=== PATIENT | male | born 1995 | race Caucasian/White ===

== ENCOUNTER 2016-03-22 17:31 | Emergency (ER) | payer OTHER ==
--- NOTE | 2016-03-22 18:25 | EDPHY ---
H & P Stated Complaint: fell snowboarding today, right shoulder injury HPI/ROS: CHIEF COMPLAINT: Right shoulder HISTORY OF PRESENT ILLNESS: snowboarding today around 1:30 p.m. when he fell, landing on the right shoulder. He was wearing a helmet and did not strike his head or lose consciousness. He is complaining of pain in the right shoulder and right trapezius muscles moderate to severe. Worse with any palpation or movement. Unable to fully move the shoulder secondary to pain. No position of comfort. There is no chest pain or shortness of breath. No abdominal pain. No injury to the left arm or either leg. No other associated complaints or modifying factors. REVIEW OF SYSTEMS: Ten systems reviewed and are negative unless otherwise noted in the HPI EXAMINATION General Appearance: Alert, no distress Head: normocephalic, atraumatic Eyes: Pupils equal and round, no conjunctival pallor or injection ENT, Mouth: Mucous membranes moist Neck: Normal inspection Respiratory: No dyspnea or retractions. No distress Cardiovascular: Pulses normal throughout. 2/2 radial pulses symmetrically.Brisk cap refill In all fingers. Good signs of perfusion Gastrointestinal: No distention or tenderness Back: non-tender, no bony abnormalities Neurological: A&O, sensory symmetric, strength symmetric Skin: Warm and dry, no rash Extremities: moderate to severe tenderness to palpation of the right AC joint and shoulder joint. Unable to fully test range of motion secondary to pain. The ipsilateral elbow and wrist are intact. Neurovascular intact distal to the right shoulder pain with brisk cap refill. Psychiatric: Mood and affect normal DIFFERENTIAL DIAGNOSES: Including but not limited to Shoulder sprain, fracture, AC separation, contusion, rotator cuff injury. MDM: fall snowboarding that resulted in a right shoulder injury. X-ray reveals a grade 2 sprain of the right AC joint. No bony abnormality. Exam reveals neurovascularly intact distally with point tenderness over the AC joint. No tenderness of the humerus, elbow or wrist on the same extremity. He has been placed in a splint will be discharged home with pain medication and instructions to follow up with Orthopedics for definitive care. Patient is comfortable with this and discharged home in stable condition. ED Precautions: Worsening pain. Erythema, edema, cyanosis, pallor, paresthesia or anesthesia. SUPERVISION: This patient was independently evaluated without the aide of supervising physician. 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 - Social History Smoking Status: Current every day smoker Constitutional: Initial Vital Signs Temperature (C) 98.6 F 03/22/16 17:34 Heart Rate 93 03/22/16 17:34 Respiratory Rate 18 03/22/16 17:34 Blood Pressure 149/82 H 03/22/16 17:34 O2 Sat (%) 98 03/22/16 17:34 O2 Delivery Mode Room Air Allergies/Adverse Reactions: No Known Allergies Allergy (Unverified 03/22/16 17:34) Home Medications: Medication Instructions Recorded Cyclobenzaprine [Flexeril 10 MG 10 mg PO TID PRN #15 tab 03/22/16 (*)] oxyCODONE HCL/ACETAMINOPHEN 1 each PO Q4-6PRN PRN #20 tablet 03/22/16 [Percocet 5-325 mg Tablet] Medical Decision Making - Data Points Medications Given: Discontinued Medications Oxycodone/Acetaminophen (Percocet 5/325mg Prepack#4) 1 btl TAKEHOME EDNOW ONE Stop: 03/22/16 18:58 Last Admin: 03/22/16 18:59 Dose: 1 btl Departure - Departure Disposition: Home, Routine, Self-Care Clinical Impression: Trauma Shoulder sprain Qualifiers: Encounter type: initial encounter Shoulder sprain type: unspecified sprain Laterality: right Qualifier Code: (S43.401A) Unspecified sprain of right shoulder joint, initial encounter Condition: Good Instructions: Shoulder Sprain (ED) Additional Instructions: Follow up with Orthopedics for definitive care. Return to the ER for numbness, cyanosis, pallor, paralysis Referrals: OUT OF STATE,. [Primary Care Provider] - As per Instructions Chris Mora MD [Medical Doctor] - As per Instructions Stand Alone Forms: Work Limited Duty Prescriptions: Cyclobenzaprine [Flexeril 10 MG (*)] 10 mg PO TID PRN #15 tab PRN Reason: Spasms oxyCODONE HCL/ACETAMINOPHEN [Percocet 5-325 mg Tablet] 1 each PO Q4-6PRN PRN # 20 tablet PRN Reason: Pain, Moderate
--- NOTE | 2016-03-22 18:36 | DX ---
Right Shoulder, Three Views March 22, 2016 at 5:43 p.m. Clinical History: 21-year-old male involved in a snowboarding accident, complaining of shoulder pain. Comparison Study: None. Findings: There is cephalad subluxation of the distal clavicle relative to the acromion, consistent w ith a type II separation sprain injury. There is no fracture observed. The glenohumeral joint is deisi omically aligned. The coracoclavicular and acromiohumeral distances are appropriate. The scapula and visualized right rib cage are intact. Impression: Type II separation sprain injury of the right acromioclavicular joint.
[2016-03-22] MEDS ORDERED: OXYCODONE/APAP 5/325MG PREPACK#4 BTL TAKEHOME ONE (18:57)
[2016-03-22 19:23] VITALS: BP 137/84; PULSE 84; RESP 14; TEMP 97.9; O2SAT 95
== END 2016-03-22 19:22 | disposition home or self-care (01) ==
DX: S43.401A Unspecified sprain of right shoulder joint, initial encounter (principal); F17.200 Nicotine dependence, unspecified, uncomplicated; V00.321A Fall from snow-skis, initial encounter; Y99.8 Other external cause status; Y93.23 Activity, snow (alpine) (downhill) skiing, snowboarding, sledding, tobogganing and snow tubing

== ENCOUNTER 2017-05-08 20:52 | Emergency (ER) | payer OTHER ==
[2017-05-08 21:01] VITALS: TEMP 98.4
[2017-05-08] MEDS ORDERED: CEPHALEXIN 500MG PREPACK#4 BTL TAKEHOME ONE (22:25)
--- NOTE | 2017-05-08 22:30 | EDPHY ---
H & P Time Seen by Provider: 05/08/17 21:04 HPI/ROS: CHIEF COMPLAINT: Right hand injury HISTORY OF PRESENT ILLNESS: 22-year-old male presents to the emergency department by private vehicle with injury to his right hand. The patient states that he accidentally cut his right hand on a traffic sign. The incident happened just prior to arrival. He is right-hand dominant. Denies any other trauma or injury. Denies fight bite. His tetanus shot is current. ROS: Denies numbness or tingling in his fingers, retained foreign body. Denies pain in his right wrist or elbow. 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 No active bleeding noted. No tendon injury identified. Normal sensation to light touch with normal 2 point discrimination. Full flexion extension of his right 5th finger. The right 4th finger reveals gaping laceration measuring 3 cm over the dorsal, proximal phalanx of the right 4th finger. Patient has a partial tendon laceration at the level of the proximal phalanx. No palpable bony tenderness. He has full flexion and extension of his ring finger. Normal sensation to light touch with normal 2 point discrimination. Patient also has a 2 cm flap laceration overlying the dorsal aspect of the right 3rd finger overlying PIP joint. Patient has a partial tendon laceration noted. He has full flexion and extension of his finger. He has normal sensation to light touch with normal 2 point discrimination. No palpable bony tenderness. Constitutional: Initial Vital Signs Temperature (C) 36.9 C 05/08/17 20:57 Heart Rate 95 05/08/17 20:57 Respiratory Rate 17 05/08/17 20:57 Blood Pressure 132/79 H 05/08/17 20:57 O2 Sat (%) 94 05/08/17 20:57 O2 Delivery Mode Room Air Allergies/Adverse Reactions: No Known Allergies Allergy (Unverified 03/22/16 17:34) Home Medications: Medication Instructions Recorded Cephalexin [Keflex] 500 mg PO QID #28 cap 05/08/17 MDM/Departure - MDM Procedures: Laceration repair #1. Verbal consent was obtained from the patient. The 1 cm laceration on the right 5th finger was anesthetized using 1% lidocaine with epinephrine. The wound was irrigated with saline, draped and explored to its base with a gloved finger. There were no deep structures involved. No tendon injury was identified. The wound was repaired with 4 0 Ethilon, 3 sutures. The wound repair was simple. The procedure was performed by myself. Laceration repair #2. Verbal consent was obtained from the patient. The 3 cm laceration on the right 4th finger was anesthetized using 1% lidocaine with epinephrine. The wound was irrigated with saline, draped and explored to its base with a gloved finger. There were no deep structures involved. Partial tendon laceration to the extensor tendon overlying proximal phalanx. The tendon was not repaired. The skin was closed. The wound was repaired with 4 0 Ethilon, 3 sutures. The wound repair was simple. The procedure was performed by myself. Laceration repair #3. Verbal consent was obtained from the patient. The 2 cm laceration on the right 3rd finger was anesthetized using 1% lidocaine with epinephrine. The wound was irrigated with saline, draped and explored to its base with a gloved finger. There were no deep structures involved. Partial tendon laceration extensor tendon overlying PIP joint. The tendon was not repaired. The wound was repaired with 4-0 Ethilon, 3 sutures. The wound repair was simple. The procedure was performed by myself. Medications Given: Discontinued Medications Cephalexin (Keflex 500 Mg Prepack#4) 1 btl TAKEHOME EDNOW ONE PRN Reason: Protocol Stop: 05/08/17 22:26 Last Admin: 05/08/17 22:43 Dose: 1 btl ED Course/Re-evaluation: 22-year-old male presents to the emergency department she with tendon laceration to his right 3rd and 4th fingers. He is right-hand dominant. The wounds were closed in the fingers were splinted. He was started on Keflex. He will follow up with orthopedic hand surgeon on Thursday. He understands the importance of following up with orthopedic surgeon on Thursday. He understands to keep the splint on until follow-up. He was given a take-home pack of Keflex as well as prescription. The case was discussed with Dr. Brantley, secondary supervising physician, who did not directly evaluate the patient but agrees with treatment and plan. - Depart Disposition: Home, Routine, Self-Care Clinical Impression: Laceration of right ring finger with tendon involvement, Laceration of right middle finger with tendon involvement Laceration of right little finger Qualifiers: Encounter type: initial encounter Damage to nail status: without damage Foreign body presence: without foreign body Qualified Code(s): S61.216A - Laceration without foreign body of right little finger without damage to nail, initial encounter Condition: Good Instructions: Cephalexin (By mouth), Care For Your Stitches (ED), Laceration ( ED), Acute Wounds (ED) Additional Instructions: You have a tendon injury to both your ring finger and your middle finger. You need to follow up with the orthopedic hand surgeon on Thursday. When you call on Thursday morning, tell them that you were seen in the emergency department and you have a partial tendon laceration to both your right middle finger and her right ring finger. Keflex 500 mg 4 times daily for 1 week to prevent infection. Keep your fingers in splint until follow up with orthopedic surgeon. Prescriptions: Cephalexin [Keflex] 500 mg PO QID #28 cap Referrals: Neel Edouard MD [Medical Doctor] - 1-2 days without fail
[2017-05-08 23:26] VITALS: BP 129/88; PULSE 96; RESP 18; O2SAT 96
== END 2017-05-08 23:25 | disposition home or self-care (01) ==
PROC: 0HQFXZZ Repair Right Hand Skin, External Approach (ICD-10-PCS; principal; 2017-05-08)
DX: S61.216A Laceration without foreign body of right little finger without damage to nail, initial encounter (principal); S56.425A Laceration of extensor muscle, fascia and tendon of right ring finger at forearm level, initial encounter; S56.423A Laceration of extensor muscle, fascia and tendon of right middle finger at forearm level, initial encounter; F17.200 Nicotine dependence, unspecified, uncomplicated; W26.8XXA Contact with other sharp object(s), not elsewhere classified, initial encounter